=== PATIENT | female | born 1960 | race Caucasian/White ===

== ENCOUNTER 2016-10-07 20:33 | Emergency (ER) | payer OTHER ==
[2016-10-08 01:19] LABS: HEMOGLOBIN 15.7 gm/dl (12.3-15.3); RED BLOOD COUNT 5.07 M/UL (4.00-5.10); WHITE BLOOD COUNT 11.7 K/UL (4.5-11.0)
[2016-10-08 01:32] LABS: BUN/CREATININE RATIO 16 (0-10)
[2017-04-19] MEDS ORDERED: MELOXICAM7.5 MG PO (12:31)
[2017-04-19] MEDS ORDERED: OMEPRAZOLE20 MG PO (12:31)
[2017-04-19] MEDS ORDERED: ESTRADIOL TRAN1 EAC1 TD (12:32)
[2017-04-19] MEDS ORDERED: PROGESTERONE200 MG PO (12:33)
[2017-04-19] MEDS ORDERED: CALCIUM600 MG PO (12:34)
[2017-04-19] MEDS ORDERED: MYRBETRIQ50 MG PO (12:35)
[2017-04-19] MEDS ORDERED: D3-20002000 UNIT PO (12:35)
[2017-04-19] MEDS ORDERED: METRONIDAZOLE TP (12:40)
[2017-04-19] MEDS ORDERED: ALEVE220 MG PO (12:41)
[2017-04-19] MEDS ORDERED: CLARITIN10 M2 PO (12:42)
== END 2016-10-08 06:24 | disposition home or self-care (01) ==
LOC: ER1 20:33
PROVIDERS: Family Medicine
DX: R19.7 Diarrhea, unspecified (principal); R11.2 Nausea with vomiting, unspecified; F17.200 Nicotine dependence, unspecified, uncomplicated; Z88.1 Allergy status to other antibiotic agents
CPT/HCPCS: 36415; 80053; 81001; 82150; 83690; 85025; 96361; 96374; 99284; J2405; J7050; J7120; Q9962

== ENCOUNTER → 2020-11-17 | Outpatient (CLI) | payer OTHER ==
[~2020-11-17] MED LIST: ALEVE220 MG PO; CALCIUM600 MG PO; CLARITIN10 M2 PO; D3-20002000 UNIT PO; ESTRADIOL TRAN1 EAC1 TD; KEFLEX CAP 500500 MG PO; MELOXICAM7.5 MG PO; METRONIDAZOLE TP; MIRALAX17 GM PO; MYRBETRIQ50 MG PO; NORCO 5-325 TA1 EACH PO; OMEPRAZOLE20 MG PO; PROGESTERONE200 MG PO; RELAFEN 750 MG750 MG PO
== END ==
LOC: HEART 5 08:58
DX: R06.02 Shortness of breath (principal)
CPT/HCPCS: 93306

== ENCOUNTER → 2020-12-10 | Outpatient (CLI) | payer OTHER | LOC: HEART 5 08:15 | DX: I20.8 Other forms of angina pectoris (principal); R06.02 Shortness of breath | CPT/HCPCS: 78452; A9502; J2785 ==

== ENCOUNTER → 2021-04-01 | Outpatient (CLI) | payer OTHER | LOC: CT 03-18 15:30 | DX: R31.0 Gross hematuria (principal); R91.1 Solitary pulmonary nodule; N32.89 Other specified disorders of bladder | CPT/HCPCS: Q9967 ==